=== PATIENT | male | born 1995 | race Caucasian/White ===

== ENCOUNTER 2018-03-27 18:44 | Outpatient (REF) | payer SELFPAY ==
[2018-03-27 19:35] LABS: HGB 14.2 g/dL (13.5-17.5); Mean Corp. HGB Concentration 34.6 g/dL (32.0-36.0); Mean Corpuscular Hemoglobin 28.8 pg (27.0-33.0); Mean Corpuscular Volume 83.2 fL (80-95); Mean Platelet Volume 10.4 fL (8.0-11.0); Platelet Count 223 x1000/uL (130-400); RBC 4.93 m/cumm (4.50-6.00); RBC Distribution Width 13.2 % (11.8-14.1); White Blood Cell Count 8.03 k/cumm (4.4-10.8)
[2018-03-27 19:57] LABS: Iron 92 ug/dL (50-175); Total Iron Binding Capacity 326 ug/dL (250-450); Transferrin Sat 28 % (20-55)
[2018-03-29 10:55] LABS: Hepatitis B Surface Ag Negative (NEGAT); Hepatitis C Ab w Rflx HCV PCR Negative (NEGAT)
[2018-03-29 11:07] LABS: HIV-1/2 Ag & Ab Screen Negative (NEGAT)
== END 2018-03-27 19:04 ==
LOC: NCHCN 18:44
PROVIDERS: PCP Nurse Practitioner Family; Referring Provider Family Medicine; Visit Provider Family Medicine
DX: F11.20 Opioid dependence, uncomplicated (principal); Z11.4 Encounter for screening for human immunodeficiency virus [HIV]; Z11.59 Encounter for screening for other viral diseases; Z01.84 Encounter for antibody response examination
CPT/HCPCS: 85027; 86803; 87340; 87389; 83540; 83550

== ENCOUNTER 2018-06-28 18:03 | Outpatient (REF) | payer OTHER, SELFPAY | END 2018-06-28 18:23 | LOC: NCHCN 18:03 | PROVIDERS: PCP Nurse Practitioner Family; Visit Provider Nurse Practitioner Family | DX: F10.11 Alcohol abuse, in remission (principal); Z53.8 Procedure and treatment not carried out for other reasons | CPT/HCPCS: 82607; 84443 ==

== ENCOUNTER 2019-05-03 10:11 | Emergency (ER) | payer MEDICAID, SELFPAY ==
[2019-05-03 10:20] VITALS: BP 125/61; PULSE 102; RESP 18; TEMP 36.1; O2SAT 97
--- NOTE | 2019-05-03 10:30 | ED.GENADUL_ITS ---
Discharge Plan Disposition Patient Disposition: HOME Condition: Stable Discharge Details Chief Complaint: RashLesion Clinical Impression: Rash Primary Care Provider: Bel Tubbs ED Provider: Maurizio Wong Home Meds and New Rx's Prescriptions: New prednisone 20 mg tablet 60 mg PO DAILY 4 Days Qty: 12 RF: 0 Continued albuterol sulfate 8.5 GM HFA aerosol inhaler 2 puff Inhalation Q4H PRN Qty: 1 RF: 2 Discharge Instructions Additional Instructions: follow up with your primary care provider within 1-2 weeks if you have severe pain, fevers or feel more ill return to the emergency department Medical Decision Making 24 yo male with hx of prior drug abuse and clear for months per patient comes in with rash on right hand for over a week. His pcp is setting him up to see vascular surgery for an eval and sent him for blood work yesterday but they were unable to obtain the labs and so he was referred here. He is in no distress on exam speaking in full sentences. Denies fevers and has no pain. Has a brown/blue colored lacy rash to the distal right forearm without swelling, tenderness or warmth and full rom of the wrist and hand with 2+ radial and ulnar pulses. I suspect this is a vasculitis. Will start him on steroids and obtain lab work that pcp was requesting. He has no fevers, pain or other findings to suggest infectious etiology and given normal vascular exam doubt arterial occlusion. No murmurs and rash is not typical of endocarditis. pt refusing to stay for results of lab work and has capacity to make his own decisions. He understands to f/u with pcp and return precautions given Differential Diagnosis Differential Diagnosis: vasculitis, drug induced rash HPI General Mode of arrival: ambulatory . Date/Time Provider Initiated Documentation: 05/03/19 10:12 . Limitations to Documentation: no limitations . Information obtained by: patient . History of Present Illness 24 year old M presents to the emergency department with the chief complaint of rash, described as moderate, Patient started experiencing this week(s) (1) and it has been constant. No relieving factors improve symptom(s), No exacerbating factors reported . Patient notes no other symptoms.. Related Data Home Medications Medication Instructions Recorded Confirmed albuterol sulfate 2 puff INHALATION Q4H PRN #1 06/27/13 05/03/19 inhaler prednisone 60 mg PO DAILY 4 Days #12 tab 05/03/19 Previous Rx's Medication Instructions Recorded prednisone 60 mg PO DAILY 4 Days #12 tab 05/03/19 Allergies Allergy/AdvReac Type Severity Reaction Status Date / Time azithromycin [From Zithromax] AdvReac Unknown Stomach Unverified 05/03/19 10:22 ache General Stated Complaint: RashLesion PATSY: 4 Review of Systems All systems reviewed & are unremarkable except as noted in HPI and below Constitutional Constitutional: Denies chills, Denies fever(s) and Denies weakness ENT Ears, Nose, Mouth, and Throat: Denies change in voice Cardiovascular Cardiovascular: Denies chest pain and Denies dyspnea Respiratory Respiratory: Denies cough and Denies dyspnea Gastrointestinal Gastrointestinal: Denies abdominal pain, Denies nausea and Denies vomiting Musculoskeletal Musculoskeletal: Denies joint swelling Neurologic Neurologic: Denies weakness [facility] Social History Smoking/Tobacco Use Status: Current every day Alcohol Intake: never Substance use type: former substance user Do you feel safe at home: Yes Do you feel safe in your relationship?: Yes Exam Const General: no acute distress Orientation: alert HENMT Head: normal to inspection Ears: external ears normal General nose exam: external nose normal Mouth: moist mucous membranes Eyes General: appearance normal, both eyes and all related structures Neck Neck: normal visual inspection Resp Effort & Inspection: normal respiratory effort and able to speak in complete sentences Cardio Rate: regular rate Skin General skin exam: turgor normal Neuro General: alert and oriented x3 Extrem General: full ROM and normal capillary refill Psych Mental Status: mental status grossly normal Course Vital Signs Vital signs: Vital Signs Temperature 36.1 C L 05/03/19 10:20 Pulse 102 H 05/03/19 10:20 Respiratory Rate 18 05/03/19 10:20 Blood Pressure 125/61 05/03/19 10:20 Pulse Oximetry 97 05/03/19 10:20 Temperature 36.1 C L 05/03/19 10:20 Temperature Source Temporal Artery Scan 05/03/19 10:20 Pulse 102 H 05/03/19 10:20 Respiratory Rate 18 05/03/19 10:20 Respiratory Effort Non-Labored 05/03/19 10:20 Blood Pressure 125/61 05/03/19 10:20 Pulse Oximetry 97 05/03/19 10:20 Oxygen Delivery Method Room Air 05/03/19 10:20 Oxygen Flow Rate 0 05/03/19 10:20 Pain Level 0 05/03/19 10:20 Lab/Test Results Lab/Test Results: 05/03/19 10:28 Blood Blood Culture - Pending 05/03/19 10:28 Blood Blood Culture - Pending
[2019-05-03] MEDS: predniSONE 20 MG TAB 60 MG PO (10:36)
[2019-05-03 11:40] LABS: Abs Immature Grans 0.02 k/cumm (0.0-0.09); Absolute Basophil Count 0.03 k/cumm (0.0-0.2); Absolute Eosinophil Count 0.32 k/cumm (0.0-0.7); Absolute Lymphocyte Count 0.91 k/cumm (1.2-3.4); Absolute Monocyte Count 0.81 k/cumm (0.11-0.7); Absolute Neutrophil Count 7.26 k/cumm (1.2-6.7); Basophils % 0.3; Eosinophils % 3.4; HCT 42.2 % (40.0-50.0); HGB 14.5 g/dL (13.5-17.5); Immature Grans % 0.2; Lymphocytes % 9.7; Mean Corp. HGB Concentration 34.4 g/dL (32.0-36.0); Mean Corpuscular Hemoglobin 29.9 pg (27.0-33.0); Mean Platelet Volume 10.2 fL (8.0-11.0); Monocytes % 8.7; Neutrophils % 77.7; Platelet Count 254 x1000/uL (130-400); RBC 4.85 m/cumm (4.50-6.00); RBC Distribution Width 14.4 % (11.8-14.1); White Blood Cell Count 9.35 k/cumm (4.4-10.8)
[2019-05-03 11:53] LABS: ALT 21 U/L (16-63); AST 15 U/L (15-37); Albumin 4.4 g/dL (3.4-5.0); Alkaline Phosphatase 110 U/L (46-116); Anion Gap 10.6 mmol/L (3-11); BUN 7 mg/dL (7-18); Bilirubin, Total 1.7 mg/dL (0.2-1.0); CO2 30.4 mmol/L (21.0-32.0); Calcium 9.6 mg/dL (8.5-10.1); Chloride 100 mmol/L (98-107); Glucose 107 mg/dL (70-100); Magnesium 1.9 mg/dL (1.8-2.4); Sodium 141 mmol/L (136-145); Total Protein 8.7 g/dL (6.4-8.2)
[2019-05-03 11:57] LABS: INR 1.1 (0.9-1.1); PTT Activated 27.5 sec (21.0-31.4)
[2019-05-03 12:00] LABS: Potassium 2.9 mmol/L (3.5-5.1)
[2019-05-03 12:06] LABS: C-Reactive Protein 2.05 mg/dL (0.0-0.3)
[2019-05-03 12:15] LABS: TSH (W/Ref FT4) 0.68 uIU/mL (0.36-3.74)
[2019-05-03 12:25] LABS: ESR 19 mm/hr (0-15)
[2019-05-03 12:29] LABS: Vitamin B12 708 pg/mL (193-986)
--- NOTE | 2019-05-04 10:23 | NUR.NOTE ---
Pt called ED 05/04/19 Rx for prednisone had not been called to pharmacy. Called to [facility] [phone]. Prednisone 20 mg. #14 not refilles. Per Debo Espana.Nursing Note:
[2019-05-06 10:36] LABS: HBs Antibody, Quant 56.2 mIU/mL; Hepatitis B Surface Ab Positive; Hepatitis B Surface Ag Negative (NEGAT)
[2019-05-06 10:47] LABS: Hepatitis C Ab w Rflx HCV PCR Negative (NEGAT)
[2019-05-06 10:59] LABS: HIV-1/2 Ag & Ab Screen Negative (NEGAT)
== END 2019-05-03 11:55 | disposition home or self-care (01) ==
PROVIDERS: Emergency Provider Emergency Medicine; PCP Nurse Practitioner Family
DX: R21 Rash and other nonspecific skin eruption (principal)
CPT/HCPCS: 36415; 80053; 85652; 86706; 86803; 87040; 87340; 87389; 99283; 82607; 83735; 84443; 85025; 85610; 85730; 86140; J7512

== ENCOUNTER 2019-12-24 13:16 | Emergency (ER) | payer MEDICAID, SELFPAY ==
[2019-12-24 13:26] VITALS: BP 129/61; PULSE 85; RESP 16; TEMP 36.8; O2SAT 98
--- NOTE | 2019-12-24 13:45 | DI.RAD_ITS ---
EXAM: XR FINGER RT INDEX CLINICAL HISTORY: pain, bite wound. TECHNIQUE: 2D digital imaging was performed. COMPARISON: No exams were available for comparison FINDINGS: BONES: No acute fracture is present. No bony destructive lesion is seen. JOINTS: No dislocation present. SOFT TISSUE: Soft tissue laceration. No visible foreign body. IMPRESSION: Soft tissue laceration. No visible foreign body. DATA REPOSITORY: RADIATION DOSE DELIVERED:
--- NOTE | 2019-12-24 13:54 | ED.GENADUL_ITS ---
Discharge Plan Disposition Patient Disposition: HOME Condition: Stable Discharge Details Chief Complaint: AnimalBite Clinical Impression: Animal bite of finger Primary Care Provider: Bel Tubbs ED Provider: Debo Espana Home Meds and New Rx's Prescriptions: New amoxicillin-pot clavulanate [Augmentin] 875-125 mg tablet 1 tab PO BID Qty: 20 RF: 0 Continued albuterol sulfate 8.5 GM HFA aerosol inhaler 2 puff Inhalation Q4H PRN Qty: 1 RF: 2 escitalopram oxalate 20 mg Tablet 20 mg PO DAILY RF: 0 buprenorphine-naloxone [Suboxone] 8-2 mg Film 8 film DAILY RF: 0 Discharge Instructions Instructions: Animal Bite (ED) Additional Instructions: Wash area gently with soap and water once or twice daily. Apply topical antibiotic ointment to the wound after washing and drying. Keep dressed with Band-Aid. Observe for any signs of infection at your wounds specifically increased redness, swelling or drainage. Observe for any increase in pain. Use antibiotic as prescribed. Please make follow-up appoint with your PCP next week for recheck Please follow-up with remainder of your rabies vaccination series specifically today is day 0, tomorrow day 1. You require vaccines on day 3, day 7 and day 14 at IV therapy. Return for any worsening, concerns or alarming symptoms sooner if needed Discharge Data Discharge Date/Time-TO BE ENTERED AT DEPARTURE: 12/24/19 14:45 Medical Decision Making <Liborio Vallecillo MD - Last Filed: 12/29/19 08:52> Patient seen, examined, and discussed with ROSE Serna. I spoke with the patient's PCP who is sending him in for evaluation. Patient bit by a ground hog right second digit. X-ray to assess for fracture and foreign body. Will start Augmentin for prophylaxis. Tetanus immunoglobulin and vaccination. Plan for follow-up in the infusion room for continued vaccination series. Plan for follow-up PCP for reassessment. I agree with treatment plan as discussed/documented. <ROSE Murguia - Last Filed: 12/24/19 14:45> 24-year-old patient presenting for a woodchuck bite to the right second digit which she sustained prior to arrival when trying to assist a woodchuck to clear the road. Patient sustained 3 puncture wounds. Was seen at PCP office who recommended ER evaluation. Patient has focal tenderness over the distal aspect of the right second digit with mild decrease in sensation distally. Patient's wounds are reasonably well approximated not requiring sutures. Patient's tetanus is up-to-date. We will plan to provide antibiotic coverage for possible contamination due to a bite wound with Augmentin. We will plan to provide immunoglobulin as well as RabAvert for rabies coverage. Patient agrees with this plan of care. Will obtain x-ray to rule out any foreign body or bony fracture. X-ray unremarkable for fracture or foreign body. Initial dose of Augmentin provided in the ER. Prescription to go. Initial rabies vaccine and immunoglobulin provided in the ER. Patient has scheduled appointment for IV therapy for Day 3 vaccination. Patient reports his understanding and agrees with plan of care. The patient was stable and requested discharge. Prior to discharge, my usual and customary return precautions were reviewed with the patient - this included follow-up instructions and reasons to return to the Emergency Department if conditions worsens, does not improve as expected, or other new concerns arise. HPI <Liborio Vallecillo MD - Last Filed: 12/29/19 08:52> General Date/Time Provider Initiated Documentation: 12/24/19 13:20 . Related Data Home Medications Medication Instructions Recorded Confirmed albuterol sulfate 2 puff INHALATION Q4H PRN #1 06/27/13 12/24/19 inhaler amoxicillin-pot clavulanate 1 tab PO BID #20 tab 12/24/19 [Augmentin] buprenorphine-naloxone [Suboxone] 8 film DAILY 12/24/19 12/24/19 escitalopram oxalate 20 mg PO DAILY 12/24/19 12/24/19 Previous Rx's Medication Instructions Recorded amoxicillin-pot clavulanate 1 tab PO BID #20 tab 12/24/19 [Augmentin] Allergies Allergy/AdvReac Type Severity Reaction Status Date / Time azithromycin [From Zithromax] AdvReac Unknown Stomach Unverified 05/03/19 10:22 ache <ROSE Murguia - Last Filed: 12/24/19 14:45> HPI Narrative: Is a 24-year-old gentleman presenting the emergency room for complaints of a woodchuck bite to the right second digit. Injury occurred prior to arrival. Patient was driving down the road the animal was in the road, patient was trying to assist it to clear the road and when he went to lift the animal bit him in the hand. Prior to touching the animal the animals walking in circles. Patient was evaluated by PCP who referred him to the ER for further evaluation. Patient's wounds were cleaned at PCP office. Patient's tetanus up-to-date in 2018. Patient does report mild pain at the digit. Pain with flexion extension. Does report some tingling in the distal tuft of the finger. There are 3 distinct wounds noted to on the palmar aspects of the second digit 1 on the lateral aspect of the second digit. No other concerns or complaints. Patient denies any Covid symptoms specifically no fever, chills, chest pain, difficulty breathing or shortness of breath or wheezing. Denies any cough. Denies any other sites of pain. General Stated Complaint: AnimalBite PATSY: 4 <ROSE Murguia - Last Filed: 12/24/19 14:45> All systems reviewed & are unremarkable except as noted in HPI and below PFSH <Liborio Vallecillo MD - Last Filed: 12/29/19 08:52> Social History Smoking/Tobacco Use Status: Current every day Alcohol Intake: never Substance use type: former substance user Do you feel safe at home: Yes Do you feel safe in your relationship?: Yes <ROSE Murguia - Last Filed: 12/24/19 14:45> Narrative Exam Narrative: CONST: Healthy appearing patient, in no acute distress. Well hydrated. Alert and oriented. HENMT: Head nomocephalic, normal to inspection. Atraumatic. Hearing grossly normal. EYES: General normal appearance. Alignment normal. Eyelids normal. Conjunctiva normal. NECK: Normal visual inspection. FROM. Trachea midline. No Midline tenderness. CHEST: Normal insepection of the chest. RESP: Normal respiratory effort. Speaking full sentences. No cough. No audible wheezing. No retractions. CARDIO: No JVD. MUSCULOSKELETAL: Right upper extremity: No significant elbow, forearm or wrist injury or pain. Flexion extension intact at wrist. Patient has no significant dorsal hand pain. Focal tenderness noted to the DIP and distal phalanx of the right second digit. Puncture wounds are noted to the palmar aspect of the second digit over the middle phalanx, lateral wound is noted. No significant deep extension to the lacerations. Loosely approximated. Mild decrease in sensation distally. Cap refills normal distally. Flexion extension intact. Pain with flexion and extension and palpation of the DIP joint. No obvious ligamentous injury SKIN: Normal. Dry. No rashes. Puncture wounds noted above in the right second digit. NEURO: Alert and awake. Speech clear. PSYCH: Normal affect. Cooperative. <ROSE Murguia - Last Filed: 12/24/19 14:45> Vital Signs Vital signs: Vital Signs Temperature 36.8 C 12/24/19 13:26 Pulse 85 12/24/19 13:26 Respiratory Rate 16 12/24/19 13:26 Blood Pressure 129/61 12/24/19 13:26 Pulse Oximetry 98 12/24/19 13:26 Temperature 36.8 C 12/24/19 13:26 Temperature Source Tympanic 12/24/19 13:26 Pulse 85 12/24/19 13:26 Respiratory Rate 16 12/24/19 13:26 Respiratory Effort Non-Labored 12/24/19 13:28 Blood Pressure 129/61 12/24/19 13:26 Blood Pressure Position Sitting 12/24/19 13:26 Pulse Oximetry 98 12/24/19 13:26 Oxygen Delivery Method Room Air 12/24/19 13:26 Oxygen Flow Rate 0 12/24/19 13:26 Pain Level 6 12/24/19 13:26
[2019-12-24] MEDS: Rabies Immune Globulin 300 UNIT/ML VIAL 1270.06 UNIT IM (14:21)
[2019-12-24] MEDS: Amoxicillin 875/Clav. 125 TAB PO (14:29)
--- NOTE | 2019-12-24 16:23 | NUR.NOTE ---
animal bite form faxed to [facility], [facility] Nadine Guajardo [phone] to call back for information of animal bite. Rabies vaccince order faxed to infusion room at [facility].Nursing Note:
== END 2019-12-24 14:45 | disposition home or self-care (01) ==
PROVIDERS: Emergency Provider Physician Assistant; PCP Nurse Practitioner Family
DX: S61.250A Open bite of right index finger without damage to nail, initial encounter (principal); W55.81XA Bitten by other mammals, initial encounter
CPT/HCPCS: 90471; 96372; 99284; 73140; 90675; 99283

== ENCOUNTER 2020-01-07 02:08 | Outpatient (RCR) | payer MEDICAID, SELFPAY | END 2020-01-07 23:59 | disposition home or self-care (01) | LOC: INF 02:08 | PROVIDERS: PCP Nurse Practitioner Family; Visit Provider Physician Assistant | DX: Z20.3 Contact with and (suspected) exposure to rabies | CPT/HCPCS: 90471; 96372; 90675 ==

== ENCOUNTER 2020-01-21 03:23 | Outpatient (RCR) | payer MEDICAID, SELFPAY | END 2020-02-07 23:59 | disposition home or self-care (01) | LOC: INF 03:23 | PROVIDERS: PCP Nurse Practitioner Family; Visit Provider Physician Assistant | DX: Z20.3 Contact with and (suspected) exposure to rabies (principal) | CPT/HCPCS: 90471; 96372; 90675 ==

== ENCOUNTER 2020-02-14 09:09 | Outpatient (RCR) | payer MEDICAID, SELFPAY | END 2020-03-09 23:59 | disposition home or self-care (01) | LOC: INF 09:09 | PROVIDERS: PCP Nurse Practitioner Family; Visit Provider Physician Assistant | DX: Z20.3 Contact with and (suspected) exposure to rabies (principal) ==

== ENCOUNTER 2021-04-12 04:02 | Outpatient (CLI) | payer MEDICAID, SELFPAY ==
[2021-04-12 12:43] LABS: ALT 26 U/L (16-63); AST 38 U/L (15-37); GGT 12 U/L (15-85)
== END 2021-04-12 04:03 | disposition home or self-care (01) ==
LOC: LBO 04:02
PROVIDERS: PCP Nurse Practitioner Family
DX: F11.20 Opioid dependence, uncomplicated (principal)
CPT/HCPCS: 36415; 82977; 84450; 84460

== ENCOUNTER 2021-09-16 13:58 | Emergency (ER) | payer OTHER, SELFPAY ==
[2021-09-16 14:01] VITALS: BP 129/72; PULSE 70; RESP 16; TEMP 36.9; O2SAT 97
--- NOTE | 2021-09-16 15:59 | ED.GENADUL_ITS ---
Discharge Plan Disposition Patient Disposition: HOME Condition: Improving Discharge Details Clinical Impression: Laceration of forearm, left Primary Care Provider: Bel Tubbs ED Provider: Barron Li Home Meds and New Rx's Prescriptions: Continued albuterol sulfate 8.5 GM HFA aerosol inhaler 2 puff Inhalation Q4H PRN Qty: 1 2RF escitalopram oxalate 20 mg Tablet 20 mg PO DAILY 0RF buprenorphine-naloxone [Suboxone] 8-2 mg Film 20 film DAILY 0RF Discharge Instructions Instructions: Laceration (ED) Additional Instructions: Laceration repaired without difficulty. Keep the area clean and dry, change antibiotic dressing daily. [id number] Tylenol and/or Motrin as directed for discomfort. Please watch for new or worsening symptoms and return to the ER for any concerns. Sutures should be removed in approximately 10 days. Medical Decision Making 26-year-old gentleman presents after accidentally cutting his left forearm with a box knife just prior to arrival, he is right-hand dominant. Will need to update tetanus status. Neuro, vascular, tendon intact. Bleeding controlled. Laceration will need repair Laceration repaired without difficulty. Subsequently cleaned and dressed appropriately Standard discharge and return precautions provided This documentation was generated using Estech dictation system, please disregard any oddities of phrase or misspellings. Medical Records Medical records reviewed: Yes I reviewed the patient's medical records. HPI General Mode of arrival: ambulatory . Date/Time Provider Initiated Documentation: 09/16/21 14:36 . Limitations to Documentation: no limitations . Information obtained by: patient . History of Present Illness 26 year old M presents to the emergency department with the chief complaint of L forearm lac, described as mild, with intensity rated at 3. Quality is described as aching, and is localized to the left and upper extremity. Patient reports no radiation. Patient started experiencing this hour(s) (1) and it has been constant. improves with No relieving factors improve symptom(s), No exacerbating factors reported . Patient notes no other symptoms.. Patient did receive the following treatments prior to arrival, none Related Data Home Medications Medication Instructions Recorded Confirmed albuterol sulfate 90 mcg/actuation 2 puff INHALATION Q4H PRN #1 06/27/13 09/16/21 aerosol inhaler inhaler buprenorphine 8 mg-naloxone 2 mg 20 film DAILY 12/24/19 09/16/21 sublingual film (Suboxone) escitalopram oxalate 20 mg tablet 20 mg PO DAILY 12/24/19 09/16/21 Allergies Allergy/AdvReac Type Severity Reaction Status Date / Time azithromycin [From Zithromax] AdvReac Unknown Stomach Unverified 09/16/21 14:05 ache General Stated Complaint: Laceration PATSY: 4 Review of Systems Constitutional Constitutional: Denies fever(s) and Denies weakness Musculoskeletal Musculoskeletal: Denies deformity, Denies arthralgias, Denies numbness, Denies stiffness and Denies tingling Integumentary/Breasts Skin/Breast: Denies rash Neurologic Neurologic: Denies numbness, Denies tingling and Denies weakness PFSH All Active Problems (Updated 09/16/21 @ 16:32 by ROSE Red) Laceration of forearm, left (Acute) Social History Smoking/Tobacco Use Status: Current every day Smoking risk assessment performed?: Yes Alcohol Intake: never Substance use type: former substance user Do you feel safe at home: Yes Do you feel safe in your relationship?: Yes Exam Const General: cooperative, healthy appearing, comfortable and no acute distress Orientation: alert and awake HENMT Head: normal to inspection, normocephalic and atraumatic Eyes Conjunctivae: conjunctivae normal Neck Neck: normal visual inspection, trachea midline and supple Resp Effort & Inspection: normal respiratory effort and able to speak in complete sentences Cardio Rate: regular rate Rhythm: regular rhythm Skin General skin exam: no rashes or lesions noted Neuro General: patient alert, patient awake, moves all extremities and no focal motor deficits Cognition: normal cognition Speech: speech normal Gait: normal gait Motor: muscle tone normal throughout Sensory Exam: no sensory deficits noted Extrem General: full ROM and capillary refill normal Elbow/forearm/wrist images: 1. 3 cm laceration. No foreign body or bleeding. Neuro, vascular, tendon intact Psych Appearance: grossly normal Mental Status: mental status grossly normal Course Vital Signs Vital signs: Vital Signs Temperature 36.9 C 09/16/21 14:01 Pulse 70 09/16/21 14:01 Respiratory Rate 16 09/16/21 14:01 Blood Pressure 129/72 09/16/21 14:01 Pulse Oximetry 97 09/16/21 14:01 Temperature 36.9 C 09/16/21 14:01 Temperature Source Skin 09/16/21 14:01 Pulse 70 09/16/21 14:01 Respiratory Rate 16 09/16/21 14:01 Blood Pressure 129/72 09/16/21 14:01 Pulse Oximetry 97 09/16/21 14:01 Oxygen Delivery Method Room Air 09/16/21 14:01 Oxygen Flow Rate 0 09/16/21 14:01 Pain Level 3 09/16/21 15:35 Procedures Laceration Laceration 1: Site: upper extremity Side (If applicable): left Size (cm): 3 Description: linear Depth: simple, single layer Local Anesthetic: Lidocaine 1% and with Epi Amount of anesthesia used (mL): 5 Pre-repair: wound explored, irrigated extensively and deep structures intact Skin layer closed with: nylon Size (cm): 4-0 Number of sutures: 7 Technique: simple, interrupted
--- NOTE | 2021-09-16 16:44 | NUR.NOTE ---
Nursing Note: Antibiotic ointment and telfa & coban applied to laceration site after provider sutured laceration and tdap given as ordered, pt tolerated w/o complaints.
[2021-09-16 16:45] VITALS: BP 110/78; PULSE 58; RESP 18; TEMP 36.9; O2SAT 99
== END 2021-09-16 16:49 | disposition home or self-care (01) ==
PROVIDERS: Emergency Provider Physician Assistant; PCP Nurse Practitioner Family
DX: S51.812A Laceration without foreign body of left forearm, initial encounter (principal); W26.0XXA Contact with knife, initial encounter; Y99.0 Civilian activity done for income or pay
CPT/HCPCS: 12002; 90471

== ENCOUNTER 2021-11-04 03:03 | Outpatient (CLI) | payer MEDICAID, SELFPAY ==
[2021-11-04 17:49] LABS: ALT 23 U/L (16-63); AST 22 U/L (15-37); GGT 20 U/L (15-85)
== END 2021-11-04 03:04 | disposition home or self-care (01) ==
LOC: LBO 03:04
PROVIDERS: PCP Nurse Practitioner Family; Visit Provider Nurse Practitioner Gerontology
DX: F11.20 Opioid dependence, uncomplicated (principal)
CPT/HCPCS: 36415; 82977; 84450; 84460

== ENCOUNTER 2022-02-21 02:43 | Outpatient (CLI) | payer MEDICAID, SELFPAY ==
[2022-02-21 12:31] LABS: Abs Immature Grans 0.01 10^3/uL (0.0-0.06); Absolute Basophil Count 0.06 10^3/uL (0.0-0.2); Absolute Eosinophil Count 0.19 10^3/uL (0.0-0.7); Absolute Lymphocyte Count 2.13 10^3/uL (1.2-3.4); Absolute Monocyte Count 0.46 10^3/uL (0.1-0.8); Absolute Neutrophil Count 2.39 10^3/uL (1.2-6.7); Basophils % 1.1; Eosinophils % 3.6; HGB 13.4 g/dL (13.5-17.5); Immature Grans % 0.2; Lymphocytes % 40.6; MCH 29.6 pg (27.0-33.0); MCHC 35.3 % (32.0-36.0); MCV 84 fL (80-95); MPV 9.9 fL (8.0-11.0); Monocytes % 8.8; Neutrophils % 45.7; Platelet Count 212 10^3/uL (130-400); RBC 4.53 10^6/uL (4.36-5.78); RDW 12.6 % (11.8-14.1); RDW-SD 38.2 fL; WBC 5.24 10^3/uL (4.4-10.8)
[2022-02-21 12:55] LABS: BUN 17 mg/dL (7-18); CREATININE 0.8 mg/dL (0.70-1.30); Calcium 9.2 mg/dL (8.5-10.1); Chloride 103 mmol/L (98-107); Glucose 91 mg/dL (74-106); Potassium 4.3 mmol/L (3.5-5.1); Sodium 142 mmol/L (136-145); TSH 0.81 uIU/mL (0.36-3.74)
== END 2022-02-21 02:44 | disposition home or self-care (01) ==
LOC: LBO 02:44
PROVIDERS: PCP Nurse Practitioner Family; Visit Provider Nurse Practitioner Family
DX: F41.8 Other specified anxiety disorders (principal); R61 Generalized hyperhidrosis; R23.2 Flushing
CPT/HCPCS: 36415; 80048; 84443; 85025

== ENCOUNTER 2022-04-13 02:49 | Outpatient (CLI) | payer MEDICAID, SELFPAY ==
[2022-04-13 12:37] LABS: Abs Immature Grans 0.02 10^3/uL (0.0-0.06); Absolute Basophil Count 0.05 10^3/uL (0.0-0.2); Absolute Eosinophil Count 0.21 10^3/uL (0.0-0.7); Absolute Monocyte Count 0.47 10^3/uL (0.1-0.8); Absolute Neutrophil Count 2.31 10^3/uL (1.2-6.7); Basophils % 0.9; Eosinophils % 3.6; HCT 37.9 % (40.0-50.0); HGB 13.3 g/dL (13.5-17.5); Immature Grans % 0.3; Lymphocytes % 46.9; MCH 29.2 pg (27.0-33.0); MCHC 35.1 % (32.0-36.0); MCV 83 fL (80-95); Monocytes % 8.2; Neutrophils % 40.1; RBC 4.55 10^6/uL (4.36-5.78); RDW-SD 36.6 fL; WBC 5.76 10^3/uL (4.4-10.8)
[2022-04-13 13:28] LABS: Iron 115 ug/dL (65-175); Total Iron Binding Capacity 346 ug/dL (250-450); Transferrin Sat 33 % (20-55)
[2022-04-13 13:41] LABS: Ferritin 189 ng/mL (26-388)
[2022-04-14 06:09] LABS: Vitamin D 25 Total 27.4 ng/mL (30-100)
[2022-04-14 09:44] LABS: Transferrin 276 mg/dL (201-352)
[2022-04-18 13:03] LABS: IgA 147 mg/dL (85-499); Interpretation (See Note); Tissue Transglutaminase IgA <1.2 U/mL (<4.0)
== END 2022-04-13 02:50 | disposition home or self-care (01) ==
LOC: LBO 02:49
PROVIDERS: PCP Nurse Practitioner Family; Visit Provider Nurse Practitioner Family
DX: R53.83 Other fatigue (principal); R89.8 Other abnormal findings in specimens from other organs, systems and tissues; E55.9 Vitamin D deficiency, unspecified; R71.8 Other abnormality of red blood cells
CPT/HCPCS: 36415; 82306; 82784; 83516; 82728; 83540; 83550; 84466; 85025

== ENCOUNTER 2022-05-24 05:53 | Day surgery (SDC) | payer OTHER, MEDICAID, SELFPAY ==
--- NOTE | 2022-05-23 19:32 | W.PM.DSUDISC ---
Date of service: 05/24/22 Time of Service: 08:47 Discharge Plan Disposition Patient Disposition: HOME Condition: Good Discharge Details Reason For Visit: EGD and colonoscopy Attending Provider: Parvez Rutledge Primary Care Provider: Bel Tubbs Home Meds and New Rx's Prescriptions: Continued ferrous gluconate 240 mg (27 mg iron) tablet 240 mg PO DAILY albuterol sulfate 8.5 GM HFA aerosol inhaler 2 puff Inhalation Q4H PRN Qty: 1 ergocalciferol (vitamin D2) [Vitamin D2] 1,250 mcg (50,000 unit) capsule 1,250 mcg PO QWEEK buprenorphine-naloxone [Suboxone] 8-2 mg film 16 film sublingual DAILY Discontinued polyethylene glycol 3350 17 gram/dose powder 238 g PO ONCE Qty: 238 0RF Rx Instructions: take per colonoscopy instructions bisacodyl [Dulcolax (bisacodyl)] 5 mg tablet,delayed release (DR/EC) 5 mg PO ONCE Qty: 4 0RF Rx Instructions: take per colonoscopy instructions Discharge Instructions Additional Instructions: 1. If tolerated, consume a soft, low fiber diet for 1-2 days. [address] not drive, drink alcohol, operate machinery, make critical decisions, or do activities that require coordination or balance for 24 hours. 3. Because air was put into your colon during the procedure, expelling air from your rectum (passing gas or farting) is normal. 4. You may not have a bowel movement for 1-3 days because of the colonoscopy prep. This is normal. 5. You may experience a sore throat for 24 to 48 hours. You may use throat lozenges or gargle with warm salt water to relieve the discomfort. 6. Because air was put into your stomach during the procedure, you may experience some belching. 7. Go directly to the emergency room if you notice any of the following: Develop chills (warm to touch), or if you have a thermometer and your temperature is above 101 Difficulty breathing or difficultly swallowing Persistent vomiting Severe abdominal pain, other than gas cramps Severe chest pain Black, tarry stools Any bleeding ? exceeding one tablespoon 8. Call your physician if the site where your intravenous was started becomes red, swollen, painful, and warm to touch. 9. Your physician has reviewed your pre-procedure medications. Please continue to take those medications as previously ordered. You will be given specific information/education regarding any changes to your medications before leaving. Stand Alone Forms: Salvador Still (DSU) Activity:: Activity as Tolerated Diet:: As Tolerated Discharge Orders Discharge Orders: Discharge Order (Routine); Ordered 05/23/22 Ordered By: Parvez Rutledge DS: Diagnosis Discharge Diagnosis (1) Occult blood in stools: Status: Acute Asessment and Plan: The EGD revealed normal esophagus, normal stomach, and normal duodenum. Random biopsies were obtained. I will contact you with the results of the biopsies. Colonoscopy was totally normal.
--- NOTE | 2022-05-23 19:33 | W.COLOREPORT ---
Date of service: 05/24/22 Time of Service: 08:47 Colonoscopy Report Date of procedure: 05/24/22 Pre-op diagnosis general: Anemia Post-op diagnosis procedure note: same Procedure: EGD and colonoscopy Surgeon: Parvez Rutledge Anesthesia Type: General:No Airway Estimated blood loss (mL): 20 Pathology: other (Duodenal biopsy, gastric antrum and body biopsy) Complications: None Disposition: same day Indications: Garcia is a 27-year-old male with anemia of uncertain etiology. He is undergoing upper and lower endoscopy to rule out occult gastrointestinal bleeding after positive guaiac test Prep: Miralax/Dulcolax Procedure Start Time: 07:40 Procedure End Time: 08:27 Retraction Time: 21 Procedure Description: After the initiation of monitored anesthetic care, and with the assistance of a bite block, I advanced a standard gastroscope through the mouth past the hypopharynx and into the esophagus.? Under the direct vision of the scope, I advanced down the esophagus into the stomach.? Once I entered the stomach, I performed a brief inspection, followed by retroflexion towards the gastric cardia.? This appeared normal.? After that, I gently advanced the scope around the incisura angularis and examined the pylorus.? This also appeared normal.? Next, I advanced the scope through the pylorus into the duodenum.? The mucosa was pink and healthy appearing.? There were no abnormalities.? I performed random biopsies of the first and second portions of the duodenum. I was able to visualize bile draining into the duodenum through the ampulla Vater. ?Next, I began retracting the endoscope.? I withdrew the scope back into the stomach and perform random biopsies of the gastric antrum and body. I then gently desufflated some of the stomach, and withdrew the endoscope into the distal esophagus. The Z-line was normal-appearing at 40 cm at the GE junction. ?Finally, I withdrew the scope along the length of the esophagus taking great care to examine the entirety of the mucosa.? I did not appreciate any abnormalities. A Next, we moved the patient to the left lateral decubitus position, and I began by performing an external anorectal exam.? Perineum and skin were normal, as was the anal verge.? There was no evidence of external hemorrhoids.? Next, I performed a digital rectal exam.? I did not appreciate any abnormal findings.? Next, I advanced a colonoscope into the rectal vault.? I performed retroflexion.? Using insufflation, I then advanced the colonoscope beyond the rectal folds and into the sigmoid colon before advancing towards the cecum.? The quality of the prep was excellent.? The scope was noted to be in the cecum by identification of the ileocecal valve and appendiceal orifice.? I then began withdrawing the colonoscope using repeated irrigation as necessary for full evaluation of the colonic mucosa. ?Once the scope was withdrawn to the level of the rectum, great care was taken to examine portions of the rectal folds.? Colonoscopy was totally normal. Finally, the scope was withdrawn and the patient was brought to the same-day surgery recovery unit as the anesthetic wore off. ?The findings and instructions were shared with the patient prior to discharge.
[2022-05-24 06:13] VITALS: BP 109/66; PULSE 66; RESP 16; TEMP 36.7; O2SAT 100
[2022-05-24] MEDS: Lactated Ringers 1,000 ML 80 ML IV (07:00)
--- NOTE | 2022-05-24 07:00 | ANES.PREOP_ITS ---
General Info Date of Service Date Performed: 05/24/22 Height: 5 ft 7 in Weight: 58.8 kg Body Mass Index (BMI): 20.2 Surgical Procedure: Operation Date: 05/24/22 07:35 Proposed Procedure Side Surgeon p Colonoscopy/Gastroscopy Parvez Rutledge MD Meds Allergies and Home Medications Allergies Allergy/AdvReac Type Severity Reaction Status Date / Time zuleyka Allergy Intermediate Hives Verified 05/24/22 06:24 azithromycin [From Zithromax] AdvReac Intermediate Stomach Unverified 05/24/22 06:24 ache bees Allergy Intermediate Swelling/Ed Uncoded 05/24/22 06:24 pepe Home Medication Medication Instructions Recorded albuterol sulfate 90 mcg/actuation 2 puff inhalation Q4H PRN ##1 06/27/13 aerosol inhaler ergocalciferol (vitamin D2) 1,250 1,250 mcg PO QWEEK 04/28/22 mcg (50,000 unit) capsule (Vitamin D2) buprenorphine 8 mg-naloxone 2 mg 16 film sublingual DAILY 05/11/22 sublingual film (Suboxone) ferrous gluconate 240 mg (27 mg 240 mg PO DAILY 05/11/22 iron) tablet Current Visit Medications: Current Medications Generic Name Dose Route Start Last Admin Trade Name Freq PRN Reason Stop Dose Admin Hyoscyamine Sulfate 0.125 mg 05/23/22 19:33 Hyoscyamine 0.125 Mg Sl/Oral/Chew SL DIRECTED PRN Ringer's Solution 1,000 mls @ 80 mls/hr 05/24/22 06:00 IV 05/24/22 23:59 INFUSION [facility] IV Miscellaneous Supplies 1 each 05/24/22 06:00 Iv Access IV 05/24/22 23:59 DIRECTED BOB Ondansetron HCl 4 mg 05/23/22 19:33 Ondansetron 4 Mg/2 Ml Vial IVP Q4H PRN PRN Nausea / Vomiting Sodium Chloride 0 ml 05/24/22 06:00 Normal Saline Flush 10 Ml Syr IV 05/24/22 23:59 PRN PRN Sodium Chloride 0 ml 05/24/22 06:00 Normal Saline 10 Ml Vial IJ 05/24/22 23:59 DIRECTED PRN Sterile Water 0 ml 05/24/22 06:00 Water,Injection,Sterile 10 Ml Vial IJ 11/15/22 23:59 DIRECTED PRN PFSH Active Problems Active Problems: Problem Status Onset Code Anxiety 01/02/13 F41.9 Occult blood in stools R19.5 Fatigue R53.83 Abnormal laboratory test R89.9 Medical History Medical History Alcohol abuse, in remission Anemia Asthma Depression Excessive sweating Generalized anxiety disorder History of attempted suicide History of opioid abuse History of substance abuse Hot flashes Paresthesia Sleep pattern disturbance Suicidal ideation Medical History Comments:: pt reports he has not had anesthesia before, a little anxious. [place] teeth extraction was under local . Tobacco Smoking/Tobacco Use Status: Current every day Tobacco Type: e-cigarettes Alcohol Alcohol Intake: never Substance Use Substance use type: former substance user Vital Signs and Lab Results Vital Signs Most Recent Vital Signs in EMR: Most Recent Vital Signs Temp Pulse Resp BP Pulse Ox 36.7 C 66 16 109/66 100 05/24/22 06:13 05/24/22 06:13 05/24/22 06:13 05/24/22 06:13 05/24/22 06:13 Lab Results Blood Type / Crossmatch: No Data to Display Complete Blood Count: No Data to Display Complete Metabolic Panel: No Data to Display Liver Function Panel: No Data to Display Coagulation Panel: No Data to Display Cardiac Panel: No Data to Display Arterial Blood Gas: No Data to Display Venous Blood Gas: No Data to Display Pancreas Panel: No Data to Display Thyroid Panel: No Data to Display Infectious Disease: No Data to Display Blood Cultures: No Data to Display Toxicology Panel: No Data to Display Anesthesia Assessment and Plan Anesthesia History Personal History: No History of General Anesthesia Family History: No Family History of Anesthesia Complications Exercise Tolerance Exercise Tolerance: Metabolic Equivalents>4 Pertinent Negatives Pertinent Negatives: No Symptoms of GERD Cardiac & Pulmonary Exam Cardiac Exam: Normal S1/S2 Heart Sounds Pulmonary Exam: Clear Bilateral Breath Sounds Implantable Cardiac Device Does patient have a Pacemaker or an ICD?: No Airway Exam Known Difficult Airway: No Mallampati Class: 2 Mouth Opening: Normal (> 3cm) Thyromental Distance: Greater than 3 cm Neck Range of Motion: Full ROM Neck Circumference: Normal Teeth Condition: Normal Dentition ASA Classification ASA Score: ASA 2 Emergency Case?: No NPO Status NPO Status: NPO Clears >2 hours, Solids >8 hours Anesthesia Plan Resuscitation Status: Full Code Anesthesia Technique: General Anesthesia Airway Planned: Natural Airway Monitors Used: Standard Monitors
[2022-05-24 07:21] VITALS: BMI 20.2
--- NOTE | 2022-05-24 08:06 | BOWEL_PTH ---
PATIENT: Garcia Dougherty LOC: [facility] U#:[id number] AGE/SX: 27/M ROOM: RE05/24/[address]: Parvez Rutledge MD : 1995 BED: DIS: 05/24/2022 SPEC #: [id number] RECD: 05/24/22 12:17 STATUS: ROXY REQ #: [id number] MILI: 05/24/22 08:[address]: Parvez Rutledge DEPT: Surgical Specimen RECD BY: Betsy Irizarry ENTERED: 05/24/22 12:19 SP TYPE: Bowel OTHR DR: Bel Tubbs Tissues: 1 - BIOPSY BOWEL 2 - STOMACH BIOPSY 3 - STOMACH BIOPSY Procedures: GROSS AND MICRO LEVEL 4 Comments: [id number]
[2022-05-24 08:49] VITALS: BP 102/70; PULSE 73; RESP 16; TEMP 36.6; O2SAT 98
--- NOTE | 2022-05-24 09:03 | W.ANESPOSTOP ---
Postoperative Evaluation Date, Time and Location Date Performed: 05/24/22 Time Performed: 09:03 Patient Location: Day Surgery Unit Vital Signs Most Recent Imported Vital Signs: Most Recent Vital Signs Temp Pulse Resp BP Pulse Ox 36.6 C 73 16 102/70 98 05/24/22 08:49 05/24/22 08:49 05/24/22 08:49 05/24/22 08:49 05/24/22 08:49 Pain Score Most Recent Pain Score: Most Recent Pain Score Pain Level 0 05/24/22 08:49 Assessment Mental Status: Awake (Alert & Oriented to Patient Baseline) Airway and Respiratory Function: Patent airway with normal (patient baseline) respiratory exam Cardiovascular Function: Hemodynamically Stable Hydration Status: Adequately Hydrated Nausea & Vomiting: No Nausea or Vomiting Pain: Pt. Denies Any Pain Peripheral Nerve Block: Patient did not receive a nerve block
[2022-05-24 09:21] VITALS: BP 113/64; PULSE 52; RESP 16; TEMP 36.2; O2SAT 100
== END 2022-05-24 09:50 | disposition home or self-care (01) ==
PROVIDERS: PCP Nurse Practitioner Family; Visit Provider Surgery
PROC: (CPT 43239; principal; 2022-05-24 07:30)
DX: D64.9 Anemia, unspecified (principal); R19.5 Other fecal abnormalities; F41.1 Generalized anxiety disorder
CPT/HCPCS: 43239; 45378; 88305; J2704

== ENCOUNTER 2024-02-22 02:31 | Outpatient (CLI) | payer OTHER, SELFPAY ==
--- NOTE | 2024-02-22 | DI.US_ITS ---
Exam(s) US BREAST LT COMPLETE US BREAST RT COMPLETE MG MAMMO DIAGNOSTIC BI EXAM: MG MAMMO DIAGNOSTIC BI CLINICAL HISTORY: Left sided gynecomastia,HYPERTROPHY, N62. TECHNIQUE: Craniocaudal and mediolateral oblique Full Field Digital Mammography views of the bilater al breast with Computer Aided Diagnosis followed by Tomosynthesis and bilateral breast ultrasound. A ll 4 quadrants of the breasts were evaluated sonographically including the subareolar and axillary re gions. COMPARISON: No priors for comparison. FINDINGS: Mammography/Tomosynthesis: Masses/Architectural Distortion: There is abundant soft tissue in the retroareolar region of the left breast most suggestive of gynecomastia. No discrete mass is seen. There does appear to be a small amount of retroareolar soft tissue on the right breast suggesting gynecomastia. Microcalcifictions: No suspicious pleomorphic-type are seen. Skin Thickening/Nipple Retraction: None. Complete bilateral breast US: Echotexture: Breast tissue is seen in the retroareolar region of the left breast consistent with gyne comastia. No significant tissue is seen in the retroareolar region of the right breast. Shadowing: No suspicious foci. Cyst: None. Solid lesions: None seen. Ductal dilation: None. IMPRESSION: 1. Findings of gynecomastia in the left breast. No evidence to suggest malignancy is seen at this ti me. 2. Findings were discussed with the patient on the date of the examination. BI-RADS Category 2 - Benign Findings Breast Density - Category C - Heterogeneously dense Breast density category C or D implies that the patient has dense breast tissue. Dense breast tissue is very common and is not abnormal but dense breast tissue can make it harder to find cancer on a ma mmogram. Also, dense breast tissue may increase their breast cancer risk. This information about the result of the mammogram report was provided to the patient to raise their awareness. Use this report when you speak with the patient about their risks for breast cancer, which includes their family hist ory. At that time, you may recommend for more screening tests (Ultrasound or MRI) as they might be us eful based on their risk. A negative radiographic report should not delay biopsy if a dominant or clinically suspicious mass is present. Up to ten percent of cancers are not identified on mammography. A negative report may reinforce clinical impression. Adenosis and dense breasts may obscure an underlying neoplasm. False positive reports average 6 to 10%. Patient will receive a letter notifying them of these results.
--- OUTSIDE RECORDS SUMMARY | 2024-02-22 02:32 | XMS_ITS | Encounter Summary ---
Author Organization [facility] Address [address] [place] [address] Care Team Providers Care Operations Vice President Name Role Phone Дмитрий Tavares MD Primary Care Provider [phone] Encounter Details Date Type Department Care Team (Late st Contact Info) Description 04/13/2022 Lab Requisition [facility] Pathology & Laboratory Medicine - [address] [address] Outr Resulting Lab, Provider Social History Tobacco Use Types Packs/Day Years Used Date Smoking Tobacco: Never Assessed Sex and Gender Information Value Date Recorded Sex Assigned at Not on file Gender Identity Not on file Sexual Orientation Not on file documented as of this encounter Plan of Treatment Not on file documented as of this encounter Procedures Procedure Name Priority Date/Time Associated Diagnosis Comments CELIAC DISEASE PANEL Routine 04/13/2022 12:32 EDT TRANSFERRIN Routine 04/13/2022 12:32 EDT documented in this encounter Results * TRANSFERRIN (04/13/2022 12:32 EDT) Transferrin 276 201 - 352 mg/dL 04/14/2022 9:40 EDT [facility] Blood VENOUS BLOOD / Unknown 04/13/2022 12:32 EDT 04/13/2022 21:22 EDT Provider Outr Resulting Lab CHEMISTRY & BLOOD GAS ORDERABLES [facility] [address] [place] [address] * CELIAC DISEASE PANEL (04/13/2022 12:32 EDT) Tissue Transglutaminase Antibody IGA <1.2 <4.0 U/mL 04/18/2022 12:59 EDT [facility] Comment: A negative result may be due to IgA deficiency and does not rule out celiac disease. ? Negative: ??<4.0 U/mL ? Weak Positive: ??4.0 - 10.0 U/mL ? Positive: ??>10.0 U/mL Results were obtained with the [employer] Lite R h-tTG IgA FELIPA assay on the [employer]. IgA 147 85 - 499 mg/dL 04/18/2022 12:59 EDT [facility] Celiac Disease Interpretation Negative Serology. Celiac disease unlikely. Approximately 10% of patients with celiac disease are seronegative. Patients who are already adhering to a gluten-free diet may also be seronegative. If celiac disease is highly clinically suspected, referral to gastroenterology for additional evaluation is recommended. 04/18/2022 12:59 EDT [facility] Blood VENOUS BLOOD / Unknown 04/13/2022 12:32 EDT 04/13/2022 21:22 EDT Provider Outr Resulting Lab IMMUNOLOGY A ND SEROLOGY ORDERABLES [facility] [address] [place] [address] documented in this encounter Visit Diagnoses Not on filedocumented in this encounter Care Teams Operations Vice President Relationship Specialty Start Date End Date Дмитрий Tavares MD [address] [place] [id number] PCP - General 04/02/13 documented as of this encounter
--- OUTSIDE RECORDS SUMMARY | 2024-02-22 02:32 | XMS_ITS | Encounter Summary ---
Author Organization [facility] Address [address] [place] [address] Care Team Providers Care Progress Clerk Name Role Phone Дмитрий Tavares MD Primary Care Provider [phone] Encounter Details Date Type Department Care Team (Late st Contact Info) Description 05/24/2022 Lab Requisition [facility] Pathology & Laboratory Medicine - [address] [address] Parvez Rutledge MD [address] [place] [address], [facility] [address] [place], [place] [id number] Other fecal abnormalities Social History Tobacco Use Types Packs/Day Years Used Date Smoking Tobacco: Every Day Cigarettes Alcohol Use Standard Drinks/Week Comments No 0 (1 standard drink = 0.6 oz pur e alcohol) Sex and Gender Information Value Date Recorded Sex Assigned at Not on file Gender Identity Not on file Sexual Orientation Not on file documented as of this encounter Plan of Treatment Not on file documented as of this encounter Procedures Procedure Name Priority Date/Time Associated Diagnosis Comments SURGICAL PATHOLOGY Today 05/24/2022 8: 06 EST Other fecal abnormalities documented in this encounter Results * SURGICAL PATHOLOGY (05/24/2022 8:06 EST) Note to Patient The following pathology results have been interpreted by your pathologist and may be available to you before your health provider has had the opportunity to review them. Please allow time for your provider to receive these results and explore management options, if applicable. 05/25/2022 14:56 EST [facility] Final Diagnosis A. DUODENUM, BIOPSY: - Duodenal mucosa with no significant diagnostic abnormalities. B. STOMACH, ANTRUM, BIOPSY: - Gastric fundic mucosa with no significant diagnostic abnormalities. - Negative for Helicobacter pylori on H&E stained sections. C. STOMACH, BODY, BIOPSY: - Gastric fundic mucosa with no significant diagnostic abnormalities. - Negative for Helicobacter pylori on H&E stained sections. 05/25/2022 14:56 [facility] Attestation By the signature below, the attending physician certifies that they have 1) personally conducted a gross and/or microscopic examination of the described specimen(s), and/or personally interpreted the results of laboratory testing of the described specimen(s), and 2) personally rendered or confirmed the above diagnosis. 05/25/2022 14:56 [facility] at 1455 Clinical History + Hemoccult test 05/25/2022 14:56 [facility] Gross Description A. Received in formalin labelled with proper patient identification (initials L, T) and duodenal bxs are 2 ledesma-pink tissues measuring 0.3 x 0.2 x 0.1 cm and 0.5 x 0.1 x 0.1 cm. Submitted intact in A1. B. Received in formalin labelled with proper patient identification (initials L, T) and gastric antrum bxs are 3 light ledesma tissues ranging in size from 0.2 x 0.1 x 0.1 cm up to 0.6 x 0.2 x 0.1 cm. Submitted intact in B1. C. Received in formalin labelled with proper patient identification (initials L, T) and body of stomach bxs are 3 light ledesma tissues ranging in size from 0.1 x 0.1 x 0.1 cm up to 0.4 x 0.2 x 0.1 cm. Submitted intact in C1. ROSE TONG(ASCP) 05/24/2022 20:03 05/25/2022 14:56 [facility] Performing Lab [facility] 05/25/2022 14:56 [facility] Scanned Images 05/25/2022 14:56 [facility] Tissue ENTIRE STOMACH / Unknown 05/24/2022 8:06 EST 05/24/2022 19:15 EST Tissue specimen (specimen) STOMACH STRUCTURE / Unknown 05/24/2022 8:06 EST 05/24/2022 19:15 EST Tissue specimen (specimen) STOMACH STRUCTURE / Unknown 05/24/2022 8:06 EST 05/24/2022 19:15 EST Parvez Rutledge MD PATHOLOGY ORDERABLES [facility] [address] [place] [address] documented in this encounter Visit Diagnoses Diagnosis Other fecal abnormalities documented in this encounter Care Teams Progress Clerk Relationship Specialty Start Date End Date Дмитрий Tavares MD [address] [place] [id number] PCP - General 04/02/13 documented as of this encounter
--- OUTSIDE RECORDS SUMMARY | 2024-02-22 02:32 | XMS_ITS | Referral Summary ---
Author Organization [facility] Address [address] [place] [address] Care Team Providers Care Statement Request Clerk Name Role Phone Дмитрий Tavares MD Primary Care Provider [phone] Allergies No known active allergies Medications Medication Sig Dispensed Refills Start Date End Date Status EPINEPHrine (EPIPEN) 0.3 mg/0.3 mL (1:1,000) injection Inject 0.3 mL into the muscle once as needed for Other for 1 dose. 1 Syringe 0 04/02/2013 Active Social History Tobacco Use Types Packs/Day Years Used Date Smoking Tobacco: Every Day Cigarettes Alcohol Use Standard Drinks/Week Comments No 0 (1 standard drink = 0.6 oz pur e alcohol) Sex and Gender Information Value Date Recorded Sex Assigned at Not on file Gender Identity Not on file Sexual Orientation Not on file Last Filed Vital Signs Vital Sign Reading Time Taken Comments Blood Pressure 108/64 04/02/2013 1230 EDT Pulse 68 04/02/2013 1230 EDT Temperature 36.3 ??C (97.3 ??F) 04/02/2013 1230 EDT Respiratory Rate 14 04/02/2013 1230 EDT Oxygen Saturation 100% 04/02/2013 1230 EDT Inhaled Oxygen Concentration - - Weight - - Height - - Body Mass Index - - Plan of Treatment Not on file Care Teams Statement Request Clerk Relationship Specialty Start Date End Date Дмитрий Tavares MD [address] [facility] [facility] [place] [address] PCP - General 04/02/13
--- OUTSIDE RECORDS SUMMARY | 2024-02-22 02:32 | XMS_ITS | Encounter Summary ---
Author Organization [facility] [place] [address] Care Team Providers Care Workday Manager Name Role Phone Joshua Christopher DNP Primary Care Provider [phone] Encounter Details Date Type Department Care Team (Late st Contact Info) Description 05/02/2019 Orders Only [place] [address] Monica Causey RN Pain of finger of left hand Social History Tobacco Use Types Packs/Day Years Used Date Smoking Tobacco: Never Assessed Sex and Gender Information Value Date Recorded Sex Assigned at Not on file Gender Identity Not on file Sexual Orientation Not on file documented as of this encounter Plan of Treatment Not on file documented as of this encounter Results * UL Seg Pressure, multi levels (05/06/2019 11:10 AM EDT) VB Text Report Department: Vascular Surgery Lab Patient: [id number] (GARCIA DOUGHERTY) CPT: 95184 ICD10: M79.645 Referring Physician: HERNANDEZ FUCHS ?? Phone: Indications: Bilateral hand numbness, tingling with discoloration. ICD10 Diagnosis Code: M79.645 Findings: Right ?(mmHg) ??Waveform ? DBI ?? Brachial Artery ??134 ? Bi-Triphasic ? Thumb ?134 ? 1.00 ?? Digit 2 ?131 ? 0.98 ?? Digit 3 ?137 ? 1.02 ?? Digit 4 ?134 ? 1.00 ?? Digit 5 ?133 ? 0.99 ?? Left ? (mmHg) ??Waveform ? DBI ?? Brachial Artery ??130 ? Bi-Triphasic ? Thumb ?130 ? 0.97 ?? Digit 2 ?126 ? 0.94 ?? Digit 3 ?124 ? 0.93 ?? Digit 4 ?130 ? 0.97 ?? Digit 5 ?132 ? 0.99 ?? Interpretation: RIGHT: No significant upper extremity arterial occlusive disease identified at rest. LEFT: No significant upper extremity arterial occlusive disease identified at rest. Comparison: ??No previous study in our vascular lab database for comparison. Electronically Signed by: TENNILLE ELLIS MD on 2019-05-07 06:08:06 PM [facility] VB Text Report End of Report [facility] 05/06/2019 11:1 0 AM EDT Hernandez Fuchs MD VASCULAR ORDERABLES [facility] documented in this encounter Visit Diagnoses Diagnosis Pain of finger of left hand Pain in limb documented in this encounter Care Teams Workday Manager Relationship Specialty Start Date End Date Joshua Christopher DNP PCP - General Family Medicine 05/02/19 documented as of this encounter
--- OUTSIDE RECORDS SUMMARY | 2024-02-22 02:32 | XMS_ITS | Clinical Summary ---
Author Organization [facility] Address One [facility] [place] [address] Care Team Providers Care Call Center Operations Manager Name Role Phone Joshua Christopher DNP Primary Care Provider Allergies Active Allergy Reactions Criticality Noted Date Comments Hymenoptera Allergenic Extract 05/06 Medications Medication Sig Dispensed Refills Start Date End Date Status escitalopram (LEXAPRO) 10 mg Tablet 0 04/15/2019 Active buprenorphine-naloxo ne (SUBOXONE) 2-0.5 mg Tablet, Sublingual Place under the tongue daily. Active EPINEPHrine 0.3 mg/0.3 mL Auto-Injector Inject 1 kit into the muscle once as needed. Inject 0.3 mL IM once as needed for allergic reaction (Throat tight, difficulty breathing). Call 911 as directed. Active Active Problems Problem Noted Date Diagnosed Date Substance use disorder 05/06/2019 Depression 05/06/2019 Anxiety 05/06/2019 Social History Tobacco Use Types Packs/Day Years Used Date Smoking Tobacco: Every Day Cigarettes Smokeless Tobacco: Former Chew Sex and Gender Information Value Date Recorded Sex Assigned at Not on file Gender Identity Not on file Sexual Orientation Not on file Last Filed Vital Signs Vital Sign Reading Time Taken Comments Blood Pressure 118/55 05/06/2019 2:48 PM EDT Pulse 61 05/06/2019 2:48 PM EDT Temperature - - Respiratory Rate - - Oxygen Saturation - - Inhaled Oxygen Concentration - - Weight 63 kg (139 lb) 05/06/2019 2:48 PM EDT rep orted Height 170.2 cm (5' 7) 05/06/2019 2:48 PM EDT r eported Body Mass Index 21.77 05/06/2019 2:48 PM EDT Plan of Treatment Health Maintenance Due Date Last Done Comments HIV screen 2011 Hepatitis C Screening 2011 Lipid Screening 2011 Hepatitis B vaccine (0-59 yrs) (1) 01/30/2012 Tdap adult 01/30/2012 Tetanus vaccine 01/30/2012 Covid-19 Vaccine (1 - 2022- season) 2023 Influenza (Flu) vaccine (1 o f 1 - Influenza standard series) 03/10/2024 Care Teams Call Center Operations Manager Relationship Specialty Start Date End Date Joshua Christopher DNP PCP - General Family Medicine 05/02/19
--- OUTSIDE RECORDS SUMMARY | 2024-02-22 02:32 | XMS_ITS | Encounter Summary ---
Author Organization [facility] Address [facility] [address] Care Team Providers Care Trust And Estates Paralegal Name Role Phone Joshua Christopher DNP Primary Care Provider Reason for Visit * Consultation (Urgent) - Specialty Diagnoses / Procedures Referred By Darrion marcelino Referred To Contact Vascular Surgery Diagnoses Rash and other nonspecific skin eruption Pain in left finger(s) SKIN RASH AND LEFT THUMB PAIN Joshua Christopher DNP [address] [place] [address] [facility] Vascular Surg [address] [place] [address] Referral ID Status Reason Start Date Expiration Date V isits Requested Visits Authorized [id number] Consult, Test & Treat Connection Center PCP Updated and/or Approved 05/02/2019 08/02/2019 6 6 Encounter Details Date Type Department Care Team (Late st Contact Info) Description 05/06/2019 2:30 PM EDT Office Visit [place] [address] Faye Neely APRN [facility] [address] VASCULAR SURGERY [place], [place] [id number] Pain of left thumb Social History Tobacco Use Types Packs/Day Years Used Date Smoking Tobacco: Every Day Cigarettes Smokeless Tobacco: Former Chew Sex and Gender Information Value Date Recorded Sex Assigned at Not on file Gender Identity Not on file Sexual Orientation Not on file documented as of this encounter Last Filed Vital Signs Vital Sign Reading [...] Mass Index 21.77 05/06/2019 2:48 PM EDT documented in this encounter Progress Notes * Faye Neely, RESPIRATORY DIRECTOR - 05/06/2019 2:30 PM EDT Vascular Clinic Consult Note Reason for visit: Concern about possible arterial injection, numbness tingling and discoloration totmb HPI: 24 year old male who is referred to Vascular Surgery by his PCP for concern about thumb pain, numbness and tingling, possible arterial injection. He states for last month plus he has times during the day that finger tips and thumb to LUE become discolored white and have pins and needles sensation that is painful. He also notes intermittent swelling to fingers,hand and wrist. He also has noted a mild rash on thumb extending to fernando. He is in recovery, has not used street drugs for well over month but he states he has injected arterially in the past at radial artery. Denies fevers, chills, feels otherwise well. Patient Active Problem List Diagnosis Code ??? Substance use disorder F19.90 ??? Depression F32.9 ??? Anxiety F41.9 Allergies not on file No current outpatient medications on file prior to visit. No current facility-administered medications on file prior to visit. ROS: Negative except as noted in HPI. Physical Exam: General: NAD, appears well Neuro: Alert and oriented, motor sensory grossly intact Ear, Nose, Throat: No masses or lesions Skin: No lesions or abnormal markings Lungs: CTA Heart: RRR Abd: Soft, NT, ND, no palpable pulsatile masses Upper Extremity - [place], warm, no ulceration, brisk capillary refill, scratchy appearing skin along side thumb, no edema Vascular: radial pulses equal bilaterally, no mass or swelling along radial artery, able to move all digits, make fist, good strength R L Carotid 2/2 bruit (n) 2/2 bruit (n) Radial 2/2 2/2 Studies: Findings: ?? Right ?(mmHg) ??Waveform ? DBI ?? Brachial Artery ??134 ? Bi-Triphasic ? Thumb ?134 ? 1.00 ?? Digit 2 ?131 ? 0.98 ?? Digit 3 ?137 ? 1.02 ?? Digit 4 ?134 ? 1.00 ?? Digit 5 ?133 ? 0.99 ? Left ? (mmHg) ??Waveform ? DBI ?? Brachial Artery ??130 ? Bi-Triphasic ? Thumb ?130 ? 0.97 ?? Digit 2 ?126 ? 0.94 ?? Digit 3 ?124 ? 0.93 ?? Digit 4 ?130 ? 0.97 ?? Digit 5 ?132 ? 0.99 ? Interpretation: ?? RIGHT: No significant upper extremity arterial occlusive disease identified at rest. ? LEFT: No significant upper extremity arterial occlusive disease identified at rest. ?? Comparison: ??No previous study in our vascular lab database for comparison. ? Assessment/Plan: 24 year old male who is referred to Vascular Surgery by his PCP for concern about thumb pain, numbness and tingling, possible arterial injection. He states for last month plus he hastimes during the day that finger tips and thumb to LUE become discolored white and have pins and needles sensation that is painful. He also notes intermittent swelling to fingers,hand and wrist but none is present at today's visit. Upper extremity seg pressures are normal, no significant upper extremity arterial occlusive disease identified at rest bilaterally. Not suspicious for pseudoaneurysm, no mass, no swelling to wrists,m radial pulses equal bilaterally. Moving all digits, hands and fingers warm, pink, no swelling, no evidence of infection. No evidence of arterial occlusive disease. To return to PCP to address further work up. He and his mother are both relieved by today's visit. Faye Neely, MSN, RESPIRATORY DIRECTOR Vascular Surgery documented in this encounter Plan of Treatment Not on file documented as of this encounter Visit Diagnoses Diagnosis Pain of left thumb Pain in limb documented in this encounter Care Teams Trust And Estates Paralegal Relationship Specialty Start Date End Date Joshua Christopher DNP PCP - General Family Medicine 05/02/19 documented as of this encounter
--- OUTSIDE RECORDS SUMMARY | 2024-02-22 02:32 | XMS_ITS | Encounter Summary ---
Author Organization [facility] Address [address] [place] [address] Care Team Providers Care Audio Video Mechanic Name Role Phone Gilson Montemayor MD Primary Care Provider [phone] Reason for Visit * Reason Comments Insect Bite Encounter Details Date Type Department Care Team (Late st Contact Info) Description 04/02/2013 12:24 EDT - 04/02/2013 14:31 EDT Hospital Encounter [facility] [place] [facility] - [address] [id number] Olivia Goss MD [address] [place] [phone] Unknown, ProviderMD Bee sting reaction (Primary Dx) Discharge Disposition: Home or Self Care Social History Tobacco Use Types Packs/Day Years [...] - - Body Mass Index - - documented in this encounter Discharge Instructions * Discharge Instructions* Olivia Goss MD - 04/02/2013 14:19 EDT Apply ice to the area and elevate the arm to reduce swelling. If you have itching take Benadryl 50 mg. YOu can take this 4 times a day. Benadryl may keep tired so you cannot do any work with machinery or do any climbing or driving when you taken Benadryl. As prescribed an EpiPen for you. This you should keep with you. If you are stung and you develop a rash, shortness of breath, trouble swallowing then you need to use the EpiPen. If you are stung and you only develop swelling and itching such as today, then you only need to useBenadryl. documented in this encounter Medications at Time of Discharge Medication Sig Dispensed Refills Start Date End Date EPINEPHrine (EPIPEN) 0.3 mg/0.3 mL (1:1,000) injection Inject 0.3 mL into the muscle once as needed for Other for 1 dose. 1 Syringe 0 04/02/2013 documented as of this encounter Ordered Prescriptions Prescription Sig Dispensed Refills Start Date End Da te EPINEPHrine (EPIPEN) 0.3 mg/0.3 mL (1:1,000) injection Inject 0.3 mL into the muscle once as needed for Other for 1 dose. 1 Syringe 0 04/02/2013 documented in this encounter Discharge Disposition Disposition Code Departure Means Destination Home or Self Care documented in this encounter ED Notes * Ofelia Cunningham LPN - 04/02/2013 1429 EDT Stable. No new complaints at d/c. Denies SOB,chest p;ain or N/V . No increase in pain or swelling or redness at site of sting. * Olivia Goss MD - 04/02/2013 5410 EDT Images from the original note were not included. DOS: 04/02/2013 Chief Complaint Patient presents with ??? Insect Bite The patient is a 18 y.o. male who presents today with Insect Bite HPI 18-year-old male here with chief complaint of a bee sting incurred today while he was at work. He was stung in the hand at the web space between the thumb and index finger of his right hand. Patient was at work in the [employer] when this occurred. 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 He says that the hand became very swollen. The swelling has gone down because of the application of ice. He said that every time he gets stung he gets more and more swelling in the hand. Patient has a respiratory infection and has some nasal congestion and sore throat. He says that he felt as if his throat was swollen after he got stung. He was not short of breath. He says he had some wheezing. no nausea, vomiting, abdominal pain. He did not suffer any hives. Hand where he was bitten was itching but that has gotten better. Patient did not take any Benadryl or other antihistamine following the sting. Review of Systems Constitutional: Negative for fever and chills. HENT: Positive for congestion and sore throat. Negative for neck pain. Respiratory: Positive for cough. Negative for shortness of breath. Cardiovascular: Negative for chest pain. Gastrointestinal: Negative for nausea and vomiting. Neurological: Negative for headaches. No current facility-administered medications for this encounter. No current outpatient prescriptions on file. No Known Allergies There are no active problems to display for this patient. History reviewed. No pertinent past medical history. History Substance Use Topics ??? Smoking status: Current Everyday Smoker -- 0.5 packs/day ??? Smokeless tobacco: Not on file ??? Alcohol Use: No History reviewed. No pertinent family history. BP 108/64 Pulse 68 Temp(Src) 97.3 ??F (36.3 ??C) (Oral) Resp 14 SpO2 100% Physical Exam Nursing note and vitals reviewed. Constitutional: He is oriented to person, place, and time. He appears well- developed and well-nourished. No distress. HENT: Right Ear: Tympanic membrane normal. Left Ear: Tympanic membrane normal. Nose: Rhinorrhea present. Mouth/Throat: Mucous membranes are not dry. No oropharyngeal exudate or posterior oropharyngeal erythema. Eyes: Conjunctivae normal are normal. Neck: No rigidity. Cardiovascular: Normal rate and regular rhythm. Pulmonary/Chest: Effort normal and breath sounds normal. No respiratory distress. He has no decreased breath sounds. He has no wheezes. He has no rhonchi. He has no rales. Abdominal: There is no hepatosplenomegaly. There is no tenderness. Musculoskeletal: Hands: Lymphadenopathy: He has no cervical adenopathy. Neurological: He is alert and oriented to person, place, and time. Skin: Skin is warm and dry. Psychiatric: He has a normal mood and affect. Consult orders: None PCP: GILSON MONTEMAYOR MD No results found for this visit on 04/02/13. Radiology orders: None Imaging Results None Procedures Course: A medical screening exam was performed. Status post bee sting. Counseling was done with the patientregarding management of bee stings. He was told to keep Benadryl with him all of the time. He is very concerned about the fact that they are often [place] in the [place] when he stung. He says each time the reaction to the bee sting is worse. I will prescribe for him an EpiPen and he was counseled on the correct indications and use of the EpiPen. We also discussed possibility of infection of the sting he incurred today and signs of infection were reviewed with him. Disposition: No disposition on file The patient's pain was managed to an adequate level weighing risk vs. benefit of further medications. Upon departure from the [facility], the patient's pain was 4 on a zero to ten scale. Condition at departure from the [facility]: Stable Final diagnoses: None No supervision required. [facility] 04/02/2013 13:37 * Ofelia Cunningham LPN - 04/02/2013 1248 EDT Pt presents with a bee sting to his right hand . 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 Reports he felt like his throat was sore and scratchy but he has also had cold s/s for a week. Denies SOB or difficulty swallowing at this time. Slight redness at site ofinjury. No swelling or streaking noted documented in this encounter Miscellaneous Notes * Scanned Note-Null - ASSISTANT HEALTH EDUCATOR, SCAN 2 - 04/04/2013 1001 EDT documented in this encounter Plan of Treatment Not on file documented as of this encounter Visit Diagnoses Diagnosis Bee sting reaction- Primary Toxic effect of venom documented in this encounter Orders Nursing Count Last Ordered Date First Orde red Date PULSE OXIMETRY 1 04/02/2013 documented in this encounter Care Teams Audio Video Mechanic Relationship Specialty Start Date End Date Gilson Montemayor MD [address] [place] [id number] PCP - General 04/02/13 documented as of this encounter
--- OUTSIDE RECORDS SUMMARY | 2024-02-22 02:32 | XMS_ITS | Encounter Summary ---
[place] [address] Care Team Providers Care Field Coil Winder Name Role Phone Joshua Christopher DNP Primary Care Provider Reason for Visit * Consultation (Urgent) - Specialty Diagnoses / Procedures Referred By Darrion marcelino Referred To Contact Vascular Surgery Diagnoses Rash and other nonspecific skin eruption Pain in left finger(s) SKIN RASH AND LEFT THUMB PAIN Joshua Christopher DNP [address] [place] [address] [facility] Vascular Surg [address] [place] [address] Referral ID Status Reason Start Date Expiration Date V isits Requested Visits Authorized [id number] Consult, Test & Treat Connection Center PCP Updated and/or Approved 05/02/2019 08/02/2019 6 6 Encounter Details Date Type Department Care Team (Late st Contact Info) Description 05/06/2019 11:00 AM EDT Tech [place] [address] Leonel Moore [place] Pain of finger of left hand Social [...] Procedure Name Priority Date/Time Associated Diagnosis Comments BRACHIAL FINGER PRESSURES STAT 05/06/2019 11:10 AM EDT Pain of finger of left hand documented in this encounter Results * UL Seg Pressure, multi levels (05/06/2019 11:10 AM EDT) VB Text Report Department: Vascular Surgery Lab Patient: [id number] (GARCIA DOUGHERTY) CPT: 50245 ICD10: M79.645 Referring Physician: HERNANDEZ FUCHS ?? [...] limb documented in this encounter Care Teams Field Coil Winder Relationship Specialty Start Date End Date Joshua Christopher DNP PCP - General Family Medicine 05/02/19 documented as of this encounter
--- OUTSIDE RECORDS SUMMARY | 2024-02-22 02:32 | XMS_ITS | Clinical Summary ---
Author Organization [facility] Address [address] [place] [address] Care Team Providers Care Ordnance Truck Installation Supervisor Name Role Phone Дмитрий Tavares MD Primary Care Provider [phone] Allergies No known active allergies Medications Medication [...] on file Sexual Orientation Not on file Obstetrics History Last Filed Vital Signs Vital Sign Reading Time Taken Comments Blood Pressure 108/64 04/02/2013 1230 EDT Pulse 68 04/02/2013 1230 EDT Temperature 36.3 ??C (97.3 ??F) 04/02/2013 1230 EDT Respiratory Rate 14 04/02/2013 1230 EDT Oxygen Saturation 100% 04/02/2013 1230 EDT Inhaled Oxygen Concentration - - Weight - - Height - - Body Mass Index - - Plan of Treatment Health Maintenance Due Date Last Done Comments Hepatitis C Screen 1993 Hepatitis B Vaccine (1 of 3 - 19+ 3-dose series) 01/29 COVID-19 Vaccine ( - 2022- season) 2023 Care Teams Ordnance Truck Installation Supervisor Relationship Specialty Start Date End Date Дмитрий Tavares MD [address] [place] [id number] PCP - General 04/02/13
== END 2024-02-22 02:51 ==
LOC: DI 02:31
PROVIDERS: PCP Nurse Practitioner Family; Visit Provider Nurse Practitioner Family
DX: N62 Hypertrophy of breast (principal); Z12.31 Encounter for screening mammogram for malignant neoplasm of breast
CPT/HCPCS: 76642; 77062; 77066; G0279

== ENCOUNTER 2024-02-28 02:59 | Outpatient (CLI) | payer OTHER, SELFPAY ==
--- OUTSIDE RECORDS SUMMARY | 2024-02-28 03:16 | XMS_ITS | Encounter Summary ---
Author Organization [facility] Address [address] [place] [address] Care Team Providers Care Contractor General Engineering Name Role Phone Дмитрий Tavares MD Primary Care Provider [phone] Encounter Details Date Type Department Care Team (Late st Contact Info) Description 05/24/2022 Lab Requisition [facility] Pathology & Laboratory Medicine - [address] [address] Parvez Rutledge MD [address] [place] [address], [facility] [address] [place], [place] [id number] Other fecal abnormalities Social History Tobacco Use [...] management options, if applicable. 05/25/2022 14:56 EST [facility] Final Diagnosis A. DUODENUM, BIOPSY: - Duodenal mucosa with no significant diagnostic abnormalities. B. STOMACH, ANTRUM, BIOPSY: - Gastric fundic mucosa with no significant diagnostic abnormalities. - Negative for Helicobacter pylori on H&E stained sections. C. STOMACH, BODY, BIOPSY: - Gastric fundic mucosa with no significant diagnostic abnormalities. - Negative for Helicobacter pylori on H&E stained sections. 05/25/2022 14:56 [facility] Attestation By the signature below, the attending physician certifies that they have 1) personally conducted a gross and/or microscopic examination of the described specimen(s), and/or personally interpreted the results of laboratory testing of the described specimen(s), and 2) personally rendered or confirmed the above diagnosis. 05/25/2022 14:56 [facility] at 1455 Clinical History + Hemoccult test 05/25/2022 14:56 [facility] Gross Description [...] C1. ROSE TONG(ASCP) 05/24/2022 20:03 05/25/2022 14:56 [facility] Performing Lab [facility] 05/25/2022 14:56 [facility] Scanned Images 05/25/2022 14:56 [facility] Tissue ENTIRE STOMACH / Unknown 05/24/2022 8:06 EST 05/24/2022 19:15 EST Tissue specimen (specimen) STOMACH STRUCTURE / Unknown 05/24/2022 8:06 EST 05/24/2022 19:15 EST Tissue specimen (specimen) STOMACH STRUCTURE / Unknown 05/24/2022 8:06 EST 05/24/2022 19:15 EST Parvez Rutledge MD PATHOLOGY ORDERABLES [facility] [address] [place] [address] documented in this encounter Visit Diagnoses Diagnosis Other fecal abnormalities documented in this encounter Care Teams Contractor General Engineering Relationship Specialty Start Date End Date Дмитрий Tavares MD [address] [place] [phone] PCP - General 04/02/13 documented as of this encounter
--- OUTSIDE RECORDS SUMMARY | 2024-02-28 03:16 | XMS_ITS | Clinical Summary ---
Author Organization [facility] Address One [facility] [place] [address] Care Team Providers Care Male Impersonator Name Role Phone Joshua Christopher DNP Primary [...] - Influenza standard series) 03/10/2024 Care Teams Male Impersonator Relationship Specialty Start Date End Date Joshua Christopher DNP PCP - General Family Medicine 05/02/19
--- OUTSIDE RECORDS SUMMARY | 2024-02-28 03:16 | XMS_ITS | Encounter Summary ---
Author Organization [facility] [place] [address] Care Team Providers Care Retail Team Leader Name Role Phone Joshua hCristopher DNP Primary Care Provider [phone] Encounter Details Date Type Department Care Team (Late st Contact Info) Description 05/02/2019 Orders Only [place] [address] Monica Causey RN Pain of finger of [...] Text Report Department: Vascular Surgery Lab Patient: [id number] (GARCIA DOUGHERTY) CPT: 26998 ICD10: M79.645 Referring Physician: HERNANDEZ FUCHS ?? [...] limb documented in this encounter Care Teams Retail Team Leader Relationship Specialty Start Date End Date Joshua Christopher DNP PCP - General Family Medicine 05/02/19 documented as of this encounter
--- OUTSIDE RECORDS SUMMARY | 2024-02-28 03:16 | XMS_ITS | Clinical Summary ---
Author Organization [facility] Address [address] [place] [address] Care Team Providers Care Dry Drug Worker Name Role Phone Дмитрий Tavares MD Primary Care Provider [phone] Allergies No known active allergies Medications Medication [...] ( - 2022- season) 2023 Care Teams Dry Drug Worker Relationship Specialty Start Date End Date Дмитрий Tavares MD [address] [place] [phone] PCP - General 04/02/13
--- OUTSIDE RECORDS SUMMARY | 2024-02-28 03:16 | XMS_ITS | Encounter Summary ---
Author Organization [facility] Address [facility] [place] [address] Care Team Providers Care Desktop Publishing Associate Name Role Phone Joshua Christopher DNP Primary Care Provider Reason for Visit * Consultation (Urgent) - Specialty Diagnoses / Procedures Referred By Darrion marcelino Referred To Contact Vascular Surgery Diagnoses Rash and other nonspecific skin eruption Pain in left finger(s) SKIN RASH AND LEFT THUMB PAIN Joshua Christopher DNP [address] [place] [address] [facility] Vascular Surg [address] [place] [address] Referral ID Status Reason Start Date Expiration Date V isits Requested Visits Authorized [id number] Consult, Test & Treat Connection Center PCP Updated and/or Approved 05/02/2019 08/02/2019 6 6 Encounter Details Date Type Department Care Team (Late st Contact Info) Description 05/06/2019 2:30 PM EDT Office [place] [address] Faye Neely APRN [facility] DR VASCULAR SURGERY [place], [place] [id number] Pain of left thumb Social History Tobacco [...] this encounter Progress Notes * Faye Neely, TRANSPORTATION LOGISTICS INTERNSHIP - 05/06/2019 2:30 PM EDT Vascular Clinic [...] no palpable pulsatile masses Upper Extremity - [place], warm, no ulceration, brisk capillary refill, scratchy [...] relieved by today's visit. Faye Neely, MSN, TRANSPORTATION LOGISTICS INTERNSHIP Vascular Surgery documented in this encounter Plan of Treatment Not on file documented as of this encounter Visit Diagnoses Diagnosis Pain of left thumb Pain in limb documented in this encounter Care Teams Desktop Publishing Associate Relationship Specialty Start Date End Date Joshua Christopher DNP PCP - General Family Medicine 05/02/19 documented as of this encounter
--- OUTSIDE RECORDS SUMMARY | 2024-02-28 03:16 | XMS_ITS | Encounter Summary ---
Author Organization [facility] Address [address] [place] [id number] Care Team Providers Care Yarn Dumper Name Role Phone Gilson Montemayor MD Primary Care Provider [phone] Reason for Visit * Reason Comments Insect Bite Encounter Details Date Type Department Care Team (Late st Contact Info) Description 04/02/2013 12:24 EDT - 04/02/2013 14:31 EDT Hospital Encounter [facility] - [address] [id number] Olivia Goss MD [address] [place] [phone] Unknown, ProviderMD Bee sting reaction (Primary Dx) [...] sting. * Olivia Goss MD - 04/02/2013 5201 EDT Images from the original note were [...] hand. Patient was at work in the [employer] when this occurred. 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 He says that the [...] of further medications. Upon departure from the [facility], the patient's pain was 4 on a zero to ten scale. Condition at departure from the [facility]: Stable Final diagnoses: None No supervision required. [facility] 04/02/2013 13:37 * Ofelia Cunningham LPN [...] encounter Miscellaneous Notes * Scanned Note-Null - SAP DATA ARCHITECT, SCAN 2 - 04/04/2013 1001 EDT documented in this encounter Plan of Treatment Not on file documented as of this encounter Visit Diagnoses Diagnosis Bee sting reaction- Primary Toxic effect of venom documented in this encounter Orders Nursing Count Last Ordered Date First Orde red Date PULSE OXIMETRY 1 04/02/2013 documented in this encounter Care Teams Yarn Dumper Relationship Specialty Start Date End Date Gilson Montemayor MD [address] [place] [phone] PCP - General 04/02/13 documented as of this encounter
--- OUTSIDE RECORDS SUMMARY | 2024-02-28 03:16 | XMS_ITS | Encounter Summary ---
Author Organization [facility] Address [address] [place] [address] Care Team Providers Care Television Antenna Installer Name Role Phone Дмитрий Tavares MD Primary Care Provider [phone] Encounter Details Date Type Department Care Team (Late st Contact Info) Description 04/13/2022 Lab Requisition [facility] Pathology & Laboratory Medicine - [address] [address] Outr Resulting Lab, Provider Social History Tobacco [...] 201 - 352 mg/dL 04/14/2022 9:40 EDT [facility] Blood VENOUS BLOOD / Unknown 04/13/2022 12:32 EDT 04/13/2022 21:22 EDT Provider Outr Resulting Lab CHEMISTRY & BLOOD GAS ORDERABLES [facility] [address] [place] [address] * CELIAC DISEASE PANEL (04/13/2022 12:32 EDT) Tissue Transglutaminase Antibody IGA <1.2 <4.0 U/mL 04/18/2022 12:59 EDT [facility] Comment: A negative result may be due to IgA deficiency and does not rule out celiac disease. ? Negative: ??<4.0 U/mL ? Weak Positive: ??4.0 - 10.0 U/mL ? Positive: ??>10.0 U/mL Results were obtained with the [employer] Lite R h-tTG IgA FELIPA assay on the [employer]. IgA 147 85 - 499 mg/dL 04/18/2022 12:59 EDT [facility] Celiac Disease Interpretation Negative Serology. Celiac disease unlikely. Approximately 10% of patients with celiac disease are seronegative. Patients who are already adhering to a gluten-free diet may also be seronegative. If celiac disease is highly clinically suspected, referral to gastroenterology for additional evaluation is recommended. 04/18/2022 12:59 EDT [facility] Blood VENOUS BLOOD / Unknown 04/13/2022 12:32 EDT 04/13/2022 21:22 EDT Provider Outr Resulting Lab IMMUNOLOGY A ND SEROLOGY ORDERABLES [facility] [address] [place] [address] documented in this encounter Visit Diagnoses Not on filedocumented in this encounter Care Teams Television Antenna Installer Relationship Specialty Start Date End Date Дмитрий Tavares MD [address] [place] [phone] PCP - General 04/02/13 documented as of this encounter
--- OUTSIDE RECORDS SUMMARY | 2024-02-28 03:16 | XMS_ITS | Encounter Summary ---
[place] [address] Care Team Providers Care Button Machine Operator Name Role Phone Joshua Christopher DNP Primary Care Provider Reason for Visit * Consultation (Urgent) - Specialty Diagnoses / Procedures Referred By Darrion marcelino Referred To Contact Vascular Surgery Diagnoses Rash and other nonspecific skin eruption Pain in left finger(s) SKIN RASH AND LEFT THUMB PAIN Joshua Christopher DNP [address] [place] [address] [facility] [address] [place] [address] Referral ID Status Reason Start Date Expiration Date V isits Requested Visits Authorized [id number] Consult, Test [facility] PCP Updated and/or Approved 05/02/2019 08/02/2019 6 6 Encounter Details Date Type Department Care Team (Late st Contact Info) Description 05/06/2019 11:00 AM EDT Tech [place] [address] Leonel Moore [place] Pain of [...] Text Report Department: Vascular Surgery Lab Patient: [id number] (GARCIA DOUGHERTY) CPT: 49729 ICD10: M79.645 Referring Physician: HERNANDEZ FUCHS ?? [...] limb documented in this encounter Care Teams Button Machine Operator Relationship Specialty Start Date End Date Joshua Christopher DNP PCP - General Family Medicine 05/02/19 documented as of this encounter
--- OUTSIDE RECORDS SUMMARY | 2024-02-28 03:16 | XMS_ITS | Referral Summary ---
Author Organization [facility] Address [address] [place] [address] Care Team Providers Care Credit Support Counselor Name Role Phone Дмитрий Tavares MD Primary Care Provider [phone] Allergies No known active allergies Medications Medication [...] of Treatment Not on file Care Teams Credit Support Counselor Relationship Specialty Start Date End Date Дмитрий Tavares MD [address] [place] [phone] PCP - General 04/02/13
[2024-02-28 12:50] LABS: HCG Qual (Serum) Negative
[2024-02-28 13:03] LABS: TSH (W/Ref FT4) 1.08 uIU/mL (0.36-3.74)
[2024-02-28 19:07] LABS: LH 3.7 mIU/mL (1.5-9.3)
[2024-03-03 16:56] LABS: Testosterone, Total 485 ng/dL (240-950)
[2024-03-04 14:10] LABS: Estradiol, Mass Spectrometry 30 pg/mL (10-40); Estrone 57 pg/mL (10-60)
== END 2024-02-28 03:00 | disposition home or self-care (01) ==
LOC: LOS 02:59
PROVIDERS: PCP Nurse Practitioner Family; Visit Provider Nurse Practitioner Family
DX: N62 Hypertrophy of breast (principal)
CPT/HCPCS: 36415; 84403; 82670; 82679; 83002; 84443; 84703

== ENCOUNTER 2024-11-01 14:49 | Outpatient (REF) | payer OTHER, SELFPAY ==
[2024-11-04 12:09] LABS: Chlamydia Result Negative (Negative); GC Result Negative (Negative)
== END 2024-11-01 14:50 | disposition home or self-care (01) ==
LOC: LBN 14:49
PROVIDERS: PCP Nurse Practitioner Family; Visit Provider Nurse Practitioner Family
DX: Z72.51 High risk heterosexual behavior (principal)
CPT/HCPCS: 87491; 87591